=== PATIENT | female | born 1975 | race Caucasian/White ===

== ENCOUNTER 2018-06-14 12:45 | Inpatient (IN) | payer OTHER ==
[~2018-06-14] VITALS: Ht 162.6 cm; Wt 78.9 kg
[2018-06-24] MEDS ORDERED: PRENATAL FORMU1 EAC1 PO (09:35)
== END 2018-06-26 10:33 | disposition home or self-care (01) | DRG 807 ==
LOC: OB/GYN 06-23 12:45 → LDR 06-24 05:44 → OB/GYN 06-25 08:04
PROC: 10E0XZZ Delivery of Products of Conception, External Approach (ICD-10-PCS; principal; 2018-06-24)
PROC: 4A1HXCZ Monitoring of Products of Conception, Cardiac Rate, External Approach (ICD-10-PCS; 2018-06-24)
PROC: 3E033VJ Introduction of Other Hormone into Peripheral Vein, Percutaneous Approach (ICD-10-PCS; 2018-06-24)
DX: O80 Encounter for full-term uncomplicated delivery (principal); Z37.0 Single live birth; Z3A.40 40 weeks gestation of pregnancy

== ENCOUNTER 2022-11-27 05:55 | Day surgery (SDC) | payer OTHER ==
[~2022-11-27] VITALS: Ht 162.6 cm; Wt 65.8 kg
[~2022-11-27 05:55] MED LIST: PRENATAL FORMU1 EAC1 PO
== END 2022-11-27 14:05 | disposition home or self-care (01) ==
LOC: CIR.AMB 05:55
PROVIDERS: ATTEND Obstetrics & Gynecology
DX: N83.292 Other ovarian cyst, left side (principal); R10.2 Pelvic and perineal pain; Z20.822 Contact with and (suspected) exposure to COVID-19

== ENCOUNTER 2023-01-25 13:14 | Outpatient (CLI) | payer OTHER | END 2023-01-25 13:15 | disposition home or self-care (01) | LOC: LAB 13:14 | DX: R07.9 Chest pain, unspecified (principal); E78.00 Pure hypercholesterolemia, unspecified ==